=== PATIENT | female | born 2000 | race Two or more races ===

== ENCOUNTER 2020-01-10 11:40 | Emergency (ER) | payer OTHER ==
[~2020-01-10] VITALS: Ht 144.8 cm; Wt 58.1 kg
[2020-01-10] MEDS ORDERED: ZYRTEC10 M3 PO (14:35)
== END 2020-01-10 14:38 | disposition home or self-care (01) ==
LOC: ER 11:40
DX: S90.424A Blister (nonthermal), right lesser toe(s), initial encounter (principal); S90.821A Blister (nonthermal), right foot, initial encounter; W57.XXXA Bitten or stung by nonvenomous insect and other nonvenomous arthropods, initial encounter; Y93.89 Activity, other specified; Y92.89 Other specified places as the place of occurrence of the external cause; Y99.8 Other external cause status